=== PATIENT | female | born 1990 | race Caucasian/White ===

== ENCOUNTER 2017-09-14 15:25 | Observation (INO) | payer MEDICAID, OTHER ==
[~2017-09-14] VITALS: Ht 157.5 cm; Wt 70.8 kg
[~2017-09-14 15:25] MED LIST: PREN-385 PO
[2017-09-14 16:06] VITALS: BP 117/67
== END 2017-09-14 16:52 | disposition home or self-care (01) ==
LOC: MLD 15:25
PROVIDERS: ADMIT Obstetrics & Gynecology; ATTEND Obstetrics & Gynecology
DX: O26.899 Other specified pregnancy related conditions, unspecified trimester (principal); R19.7 Diarrhea, unspecified; O21.9 Vomiting of pregnancy, unspecified; Z3A.00 Weeks of gestation of pregnancy not specified
CPT/HCPCS: 59025; 81000; G0378